=== PATIENT | male | born 1995 | race Two or more races ===

== ENCOUNTER 2024-07-26 00:27 | Emergency (ER) | payer MEDICAID ==
[~2024-07-26] VITALS: Ht 157.5 cm; Wt 75.0 kg
[2024-07-26 02:09] VITALS: BP 121/73; PULSE 90; RESP 15; TEMP 98; O2SAT 98
== END 2024-07-26 03:42 ==
LOC: EMS 00:27
DX: F10.129 Alcohol abuse with intoxication, unspecified (principal); V49.88XA Car occupant (driver) (passenger) injured in other specified transport accidents, initial encounter; Y93.89 Activity, other specified; Y92.89 Other specified places as the place of occurrence of the external cause; Y99.8 Other external cause status; Z04.1 Encounter for examination and observation following transport accident; Z02.89 Encounter for other administrative examinations
CPT/HCPCS: 70450; 72125; 99284